=== PATIENT | female | born 1985 | race Caucasian/White ===

== ENCOUNTER 2024-12-31 08:34 | Outpatient (CLI) | payer OTHER | END 2024-12-31 14:40 | disposition home or self-care (01) | LOC: MAMO-SONO 08:34 | DX: G44.209 Tension-type headache, unspecified, not intractable (principal); E66.9 Obesity, unspecified; R00.2 Palpitations; Z68.36 Body mass index [BMI] 36.0-36.9, adult; N64.9 Disorder of breast, unspecified; R10.9 Unspecified abdominal pain; R10.2 Pelvic and perineal pain; Z12.31 Encounter for screening mammogram for malignant neoplasm of breast ==